=== PATIENT | female | born 1980 | race Caucasian/White ===

== ENCOUNTER 2019-02-28 19:57 | Emergency (ER) | payer MEDICAID ==
[~2019-02-28] VITALS: Ht 157.5 cm; Wt 104.8 kg
[2019-02-28 20:04] VITALS: BP_SYST 137
--- NOTE | 2019-02-28 20:09 | NUR ---
Patient triaged and placed in waiting room. VSS and patient appears in no acute distress at this time. Accompanied by visitor, awaiting available bed, and MD notified of need for MSE.
--- NOTE | 2019-02-28 23:06 | NUR ---
Pt AAOx4 ambulated into ED c/o headache and loose feeling/weakness to L arm. Pt took aspririn with no relief. No deformities noted. Skin pink dry and warm, breathing even and unlabored. No other injuries/complaints per pt/noted. Will continue to monitor.
--- NOTE | 2019-02-28 23:06 | NUR ---
Patient to ER bed 06 for evaluation. Side rails up.
--- NOTE | 2019-02-28 23:15 | NUR ---
ER at bedside examining patient.
--- NOTE | 2019-03-01 00:21 | NUR ---
Looked for pt in bathroom and in room. No where to be found. Pt eloped. Charge nurse and ER MD made aware.
== END 2019-03-01 00:21 | disposition left against medical advice (07) ==
LOC: SED 19:57
DX: R51 Headache (principal); R53.1 Weakness; Z53.21 Procedure and treatment not carried out due to patient leaving prior to being seen by health care provider
CPT/HCPCS: 99281

== ENCOUNTER 2021-06-24 17:22 | Emergency (ER) | payer MEDICAID, SELFPAY ==
[~2021-06-24] VITALS: Ht 157.5 cm; Wt 100.7 kg
--- NOTE | 2021-06-24 17:26 | NUR ---
Patient to ER Tent 1 to gown for evaluation. Side rails up.
--- NOTE | 2021-06-24 17:30 | NUR ---
Pt brought by self, A&Ox4, pt presents to ER with cough/bodyaches/congestion, skin pink and warm, cap refill <3, VSS.
--- NOTE | 2021-06-24 17:30 | NUR ---
Dr Lynn evaluating patient at bedside
[2021-06-24 17:42] VITALS: BP_SYST 133
[2021-06-24] MEDS ORDERED: PRED20TA PO (19:30)
[2021-06-24] MEDS ORDERED: ALBU8.5H8 INH (19:30)
[2021-06-24 20:21] VITALS: BP_SYST 133
--- NOTE | 2021-06-24 20:24 | NUR ---
Patient given written and verbal discharge instructions and verbalizes understanding. ER MD discussed with patient the results and treatment provided. Patient in stable condition. ID arm band removed. Rx of Albuterol/ Prednisone given. Patient educated on pain management and to follow up with PMD. Pain Scale 2/10. Opportunity for questions provided and answered. Medication side effect fact sheet provided.
== END 2021-06-24 20:24 | disposition home or self-care (01) ==
LOC: SED 17:22
DX: U07.1 COVID-19 (principal); J40 Bronchitis, not specified as acute or chronic
CPT/HCPCS: 36415; 71045; 99284